=== PATIENT | male | born 1960 | race Caucasian/White ===

== ENCOUNTER 2020-06-01 08:23 | Emergency (ER) | payer OTHER ==
[~2020-06-01] VITALS: Ht 172.7 cm; Wt 99.8 kg
--- NOTE | 2020-06-01 08:23 | NUR ---
BROUGHT BACK TO BED #3 AND TRIAGED. REPORT GIVEN TO MAYELA
[2020-06-01 08:32] VITALS: BP_SYST 158
--- NOTE | 2020-06-01 08:33 | NUR ---
Patient AAOx4 ambulatory to bed 3, c/o bump under right eye. Patient wants it removed. Patient denies any pain or itching near eye. No drainage, no odor noted to right eye bump. Patient denies any PMH or allergies.
--- NOTE | 2020-06-01 08:34 | NUR ---
ER Dr. Lema at bedside examining patient.
--- NOTE | 2020-06-01 09:00 | NUR ---
Patient given written and verbal discharge instructions and verbalizes understanding. ER MD discussed with patient the results and treatment provided. Patient in stable condition. ID arm band removed. No Rx given. Patient educated on pain management and to follow up with PMD. Pain Scale 0/10. Opportunity for questions provided and answered. Medication side effect fact sheet provided.
[2020-06-01 09:07] VITALS: BP_SYST 158
== END 2020-06-01 09:00 | disposition home or self-care (01) ==
LOC: SED 08:23
DX: L85.8 Other specified epidermal thickening (principal)
CPT/HCPCS: 99281